=== PATIENT | male | born 1955 | race Caucasian/White ===

== ENCOUNTER 2019-08-10 02:41 | Inpatient (IN) | payer SELFPAY ==
[2019-08-10] VITALS (14 sets, daily range): BP systolic 116–179; BP diastolic 73–113; PULSE 60–79; RESP 16–20; TEMP 36.5–36.9; O2SAT 92–98; BMI 23.7
--- NOTE | 2019-08-10 03:01 | XRR_ITS ---
PROCEDURE INFORMATION: Exam: XR Chest, 1 View Exam date and time: 08/10/2019 3:12 AM Age: 64 years old Clinical indication: Shortness of breath; Additional info: CVA TECHNIQUE: Imaging protocol: XR of the chest Views: 1 view. COMPARISON: No relevant prior studies available. FINDINGS: Lungs: Unremarkable. No consolidation. Pleural space: Unremarkable. No pleural effusion. No pneumothorax. Heart/Mediastinum: Unremarkable. No cardiomegaly. Bones/joints: Unremarkable. XR/XR chest 1V portable [id number] IMPRESSION: No acute findings.
--- NOTE | 2019-08-10 03:01 | ECG_ITS ---
Measurements Intervals [place] Rate: 64 P: 89 UT: 176 QRS: 85 QRSD: 86 T: 93 QT: 383 QTc: 398 SINUS RHYTHM NONSPECIFIC T-WAVE ABNORMALITY No previous ECG available for comparison Electronically Signed On 08-10-2019 18:19:43 CDT by Reza Florez M.D. [email or web address]
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
[2019-08-10 03:27] LABS: Basophils # 0.1 10^3/uL (0.0-0.1); Basophils % 0.8 %; Eosinophils # 0.2 10^3/uL (0.0-0.8); Eosinophils % 3.3 %; Hematocrit 35.4 % (42.0-52.0); Hemoglobin 11.7 g/dL (11.7-16.6); Lymphocytes # 1.6 10^3/uL (0.8-4.8); Lymphocytes % 25.8 %; Mean Corpuscular HGB Conc 33.1 g/dL (30.0-36.0); Mean Corpuscular Hemoglobin 32.4 pg (28.0-34.0); Mean Corpuscular Volume 98.1 fL (80-94); Mean Platelet Volume 9.2 fL (7.4-10.4); Monocytes # 0.6 10^3/uL (0.2-0.9); Monocytes % 9.2 %; Neutrophils # 3.8 10^3/uL (1.8-7.7); Neutrophils % 60.4 %; Nucleated Red Blood Cells % 0 %; Platelet Count 199 10^3/cmm (130-400); Red Blood Count 3.61 10^6/uL (4.1-5.3); Red Cell Distribution Width 13.5 % (12.1-15.1); White Blood Count 6.3 10^3/uL (4.0-10.0)
[2019-08-10 03:40] LABS: INR 0.92 (0.8-1.2)
[2019-08-10 03:50] LABS: Albumin Level 4.2 g/dL (3.5-5.2); Alkaline Phosphatase 62 IU/L (40-130); Anion Gap 15.2 (5-19); Blood Urea Nitrogen 20 mg/dL (8-23); Calcium 8.8 mg/dL (8.5-10.5); Carbon Dioxide 28 mmol/L (22-29); Chloride 99 mmol/L (98-107); Globulin 2.9 g/dL (1.3-4.6); Glomerular Filtration Rate 38.4 mL/min (90-130); Glucose 100 mg/dL (65-115); Osmolality Calculated 283 mOsm/kg (285-295); Potassium 4.2 mmol/L (3.5-5.1); Sodium 138 mmol/L (136-145); Total Bilirubin 0.2 mg/dL (0.15-1.2); Total Protein 7.1 g/dL (6.6-8.7)
[2019-08-10 04:01] LABS: Alanine Aminotransferase < 5 U/L (0-41); Aspartate Amino Transferase 5 U/L (0-40)
[2019-08-10 04:12] LABS: Troponin(5th) Baseline 54 ng/L (0-15)
--- NOTE | 2019-08-10 04:27 | PM.HP ---
Providers/Chief Complaint Chief Complaint: stroke like symptoms History of Present Illness Tk Portillo is a 64 year old male who does not see any doctor, does not take any medications, was told about hypertension 5 years ago, has history of lacunar infarct came in for chief complaint of left-sided weakness. Patient is stating that he lives in a camper, he tries to avoid seeing a doctor to save his money, last week on Monday he used IV methamphetamine and on Monday he started experiencing left-sided weakness, started with his left leg, he was not able to lift his left leg to get into his camper, he also noticed loosening of his left hand medical office asst, his speech was more slurred, he was trying to avoid coming to the hospital but his family and especially daughter forced him to come to the ER for further evaluation. He is denying chest pain, shortness of breath, blurry vision. He is endorsing nocturia, urinary frequency. Patient is stating that he does not eat healthy, he eats from gas stations, he does not cook at his camper, smokes 4 to 5 cigarettes a day, no recent alcohol use, he does marijuana sometimes and recently did IV methamphetamine. Diagnostics in the ER revealed normal sinus rhythm, systolic blood pressure ranging between 180/110mmhg, no ischemic or infarctive changes on EKG, left atrial enlargement, Diagnostic work-up is unremarkable Patient wanted to leave from the ER for concerns of pain for his stay in the hospital and agreed to stay once I explained him the complications of hypertensive encephalopathy and hemorrhagic stroke Review of Systems Const: Reports: fatigue; Denies: fever(s), chills or body aches Eyes: Denies: change in vision ENMT: Denies: throat pain Card: Denies: chest pain Resp: Denies: dyspnea GI: Denies: abdominal pain or nausea : Reports: urinary frequency and nocturia; Denies: flank pain Musc: Denies: neck pain Skin/Breast: Denies: rash Neuro: Reports: weakness in extremities and Slurred speech present; Denies: frequent falls or behavioral changes Psych: Denies: anxiety Endo: Denies: polyuria Parminder/Lymph: Denies: easy bruising All/Imm: Denies: urticaria PFSH Acute PFSH: Medical History (Updated 08/10/19 @ 05:18 by Reza Watkins MD) Hypertension Lacunar infarction Surgical History (Updated 08/10/19 @ 05:11 by Reza Watkins MD) No pertinent past surgical history Family History (Updated 08/10/19 @ 05:11 by Reza Watkins MD) Daughter Stroke Social History (Updated 08/10/19 @ 05:12 by Reza Watkins MD) Smoking and tobacco status: heavy tobacco smoker cigarettes Number of cigarettes per day: 1-5 Alcohol intake: never Substance/Drug Use: current Substance/Drug use type: Methamphetamine Lives independently: Yes Housing: Other Details: Lives in a camper Vitals/I&O/Wt Last Vital Signs Temp 97.8 F 08/10/19 03:00 Pulse 64 08/10/19 03:46 Resp 16 08/10/19 03:46 BP 163/105 08/10/19 03:46 Pulse Ox 95 08/10/19 03:46 Weight last 48 hrs Weight 77.111 kg Physical Exam Narrative: EXAM NARRATIVE: Head to toe examination Patient is lying comfortably in his bed without any active discomfort He is hypertensive, EKG showing normal sinus rhythm NIH 1 for slight slurring of speech Good strength of upper and lower extremities 3/5 on flexion and extension Absent sensations around toes laterally Unkempt Reflexes equivocal No cerebellar sign Awake alert oriented x3 GCS 15 No facial asymmetry Pupils equal and reactive S1, S2 No signs of heart failure Abdomen soft nontender nondistended Lungs are clear to auscultation Poor hygiene Data : 08/10/19 03:10 08/10/19 03:10 A&P Assessment and plan (1) TIA (transient ischemic attack): Status: Acute (2) Left arm weakness: Status: Acute (3) Dysarthria: Status: Acute (4) Acute kidney injury: Status: Acute Additional A&P Information TIA NIH 1 History of hypertension, has not seen a doctor in a long time, history of avoiding to see a doctor to avoid pain co-pays I have started him on aspirin, Plavix and high-dose statins Allow permissive hypertension for next 24 hours Drug screen, check TSH CT head negative for acute pathology Physical therapy in the morning I will let him eat, do not think we need speech evaluation at this time ELLIOT due to hypotension and methamphetamine abuse I do not have his baseline creatinine Check drug screen Patient is stating that he has been experiencing nocturia, his urine stream is very weak We will get renal ultrasound to rule out hydronephrosis Patient is stating that he will try his best to avoid seeing a doctor in order to save his money, he was told about his hypertension 5 years ago and he did not seek any medical attention, his son is at the bedside I counseled both patient and his son for about 10 minutes and they agreed to see a doctor and use recommended medications on discharge Full code DVT prophylaxis Heparin Cardiac diet Attestations Medical Necessity Statement*: Anticipating discharge in less than 48 hours continue investigation for TIA Time Spent in Patient Care: 50 Coding Level of Care Code Acute Telecommunication Equipment Repairer for Chg Fwd Diagnoses TIA (transient ischemic attack) G45.9 Left arm weakness R29.898 Dysarthria R47.1 Acute kidney injury N17.9
[2019-08-10] MEDS: aspirin 81 mg Chew Tablet 324 MG PO (04:30)
--- NOTE | 2019-08-10 05:01 | ECG_ITS ---
Measurements Intervals [place] Rate: 61 P: 82 FL: 188 QRS: 81 QRSD: 78 T: 94 QT: 405 QTc: 410 SINUS RHYTHM SEPTAL MYOCARDIAL INFARCTION , PROBABLY OLD [40+ ms Q WAVE IN V1/V2] No previous ECG available for comparison Electronically Signed On 08-10-2019 18:20:25 CDT by Reza Florez M.D. [id number]
--- NOTE | 2019-08-10 05:44 | USR_ITS ---
PROCEDURE INFORMATION: Exam: US Retroperitoneal Complete, Kidneys and Bladder. Exam date and time: 08/10/2019 7:10 AM Age: 64 years old Clinical indication: Abnormal findings; Abnormal lab test; Abnormal kidney function lab tests; Additional info: Ronny TECHNIQUE: Imaging protocol: Real-time ultrasound of the retroperitoneum with image documentation. Complete exam focused on the kidneys and bladder. COMPARISON: No relevant prior studies available. FINDINGS: Right kidney: Septated cyst in the right kidney measuring 1.9 x 1.5 x 1.9 cm. Simple appearing cyst in the medial lower pole measuring 1.8 x 1.6 x 1.7 cm. No stones. No hydronephrosis. Left kidney: 5.5 x 5.6 x 5.3 cm cyst in the upper pole of the left kidney. No stones. No hydronephrosis. Bladder: Unremarkable. Aorta: The distal aorta was not visualized. US/US renal BI* [id number] IMPRESSION: No acute findings.
--- NOTE | 2019-08-10 05:44 | USCV_ITS ---
Tk Portillo Age: 64 Gender: M : 1955 Exam Date: 08/10/2019 06:56 Ordering Phys: Reza Watkins MD Technologist: Ophelia Servin Exam Location: [facility] [place] Indication: Concern for embolic stroke BP: 176 / 108 HR: 61 Rhythm: Sinus Technical Quality: Suboptimal MEASUREMENTS (Male / Female) Normal Values 2D ECHO LV Diastolic Diameter PLAX 3.5 cm 4.2 - 5.9 / 3.9 - 5.3 cm LV Systolic Diameter PLAX 2.2 cm LV Chamber Size 3.0 cm IVS Diastolic Thickness 1.1 cm 0.6 - 1.0 / 0.6 - 0.9 cm IVS Systolic Thickness 1.7 cm LVPW Diastolic Thickness 1.4 cm 0.6 - 1.0 / 0.6 - 0.9 cm LVPW Systolic Thickness 2.0 cm RV Chamber Size 1.6 cm LVOT Diameter 1.8 cm LV Ejection Fraction 2D Teich 69.4 % LA Diameter 2.4 cm LA Width 2.1 cm LA Height 2.9 cm RA Width 1.2 cm RA Height 3.8 cm Aorta at Sinotubular Diameter 2.0 cm M-MODE LV Diastolic Diameter MM 4.3 cm 4.2 - 5.9 / 3.9 - 5.3 cm LV Systolic Diameter MM 2.6 cm LV Ejection Fraction MM Teich 70.0 % IVS Diastolic Thickness MM 1.3 cm 0.6 - 1.0 / 0.6 - 0.9 cm IVS Systolic Thickness MM 2.1 cm LVPW Diastolic Thickness MM 1.6 cm 0.6 - 1.0 / 0.6 - 0.9 cm LVPW Systolic Thickness MM 2.1 cm RV Diastolic Diameter MM 1.1 cm Aortic Annulus Diameter 3.0 cm LA Ao Ratio MM 0.8 MV E Point Septal Separation 0.6 cm DOPPLER AV Peak Velocity 83.0 cm/s LVOT Peak Velocity 56.0 cm/s AV Area Cont Eq vti 1.9 cm squared AV Area Cont Eq pk 1.8 cm squared MV Area PHT 3.0 cm squared Mitral E to A Ratio 0.8 MV E' Velocity 6.0 cm/s Mitral E to MV E' Ratio 8.1 Mitral E to LV E' Lateral Ratio 8.3 Mitral E to LV E' Septal Ratio 8.0 TV Peak E Velocity 61.0 cm/s Right Atrial Pressure 3.0 mmHg PV Peak Velocity 57.0 cm/s RV Acceleration Time 0.1 s RV Ejection Time 0.2 s RV AcT/ET 0.5 FINDINGS Left Ventricle Normal left ventricular cavity size. Normal left ventricular systolic function. No regional wall motion abnormalities. Left ventricular ejection fraction is estimated at 60 %. Grade I/IV diastolic dysfunction (abnormal relaxation filling pattern), normal to mildly elevated filling pressures. Right Ventricle The right ventricle is normal in size and function. RVSP could not be calculated due to incomplete tricuspid regurgitation velocity profile. Right Atrium The right atrium is normal in size. Left Atrium The left atrium is normal in size. Mitral Valve Structurally normal mitral valve without significant stenosis or prolapse. There is no mitral regurgitation. Aortic Valve Moderate aortic valve calcification. Mild aortic valve stenosis, mean gradient 1.5 mmHg, SHAI 1.9 cm squared. No aortic valve regurgitation. Tricuspid Valve Structurally normal tricuspid valve without significant stenosis or regurgitation. Pulmonic Valve Structurally normal pulmonic valve without significant stenosis. There is no pulmonic regurgitation. Pericardium Normal pericardium without effusion. Aorta Normal ascending aorta dimension. CONCLUSIONS 1-Normal left ventricular cavity size. Normal left ventricular systolic function. No regional wall motion abnormalities. Left ventricular ejection fraction is estimated at 60 %. Grade I/IV diastolic dysfunction (abnormal relaxation filling pattern), normal to mildly elevated filling pressures. 2-Moderate aortic valve calcification. Mild aortic valve stenosis, mean gradient 1.5 mmHg, SHAI 1.9 cm squared. No aortic valve regurgitation. 3-The right ventricle is normal in size and function. RVSP could not be calculated due to incomplete tricuspid regurgitation velocity profile. 4-There is no pericardial effusion. 5-Right atrial pressure is around 5 mm of mercury. 6-There are no prior echocardiogram studies to compare. Reza Florez MD (Electronically Signed) Final Date: 10 August 2019 17:19 S
--- NOTE | 2019-08-10 05:44 | USR_ITS ---
Arterial ultrasound of the extracerebral carotid and vertebral arteries Clinical indication: Left arm weakness Technique: Real-time ultrasound with diaz scale, duplex Doppler, and color flow imaging was performed to evaluate the extracerebral carotid and vertebral arteries. No prior vascular imaging studies are available for correlation at the time of dictation. Findings: Prominent mixed echogenic plaque formation is identified in the carotid arteries along with intimal thickening . There is normal antegrade flow within the vertebral arteries bilaterally. The peak systolic velocity measurements within the right and left internal carotid arteries are 88 and 89 cm per second respectively. The right systolic velocity ratio is 1.66, while the left systolic velocity ratio is 1.48. These values are well within normal limits. When correlating with NASCET index criteria, no hemodynamically significant ICA stenosis is present. US/CV carotid duplex BI* [id number] Impression: 1. Prominent mixed echogenic plaque formation within the carotid arteries, without hemodynamically significant ICA stensosis. 2. Normal antegradew flow within the vertebral arteries.
[2019-08-10] MEDS: heparin 5,000 unit/mL INJ 1 mL 5000 UNIT SUBCUT ×3 (06:16→20:59)
[2019-08-10] MEDS: atorvastatin 40 mg Tablet 80 MG PO ×2 (06:16→20:58)
[2019-08-10] MEDS: clopidogrel 75 mg Tablet PO (06:16)
[2019-08-10 06:36] LABS: Thyroid Stimulating Hormone 86.83 uIU/mL (0.27-4.20)
--- NOTE | 2019-08-10 06:44 | PC.NURSE ---
US at bedside
--- NOTE | 2019-08-10 07:57 | PC.NURSE ---
physician ordered for pt to have a U/A.
[2019-08-10 08:03] LABS: Estmated Average Glucose 114; Hemoglobin A1C 5.6 % (4.0-6.0)
[2019-08-10 08:04] LABS: Chol HDL Ratio 9.68 mg/dL (1.0-5.00); Cholesterol 271 mg/dL (0-200); HDL Cholesterol 28 mg/dL (60-100); Triglycerides 662 mg/dL (0-150); VLDL Cholestrol Calculation 132 mg/dL (0-30)
[2019-08-10 08:15] LABS: T3 Free 0.4 PG/ML (2.0-4.4)
[2019-08-10 08:51] LABS: LDL Cholesterol Direct 167 mg/dL (0-100)
--- NOTE | 2019-08-10 09:01 | ECG_ITS ---
Measurements Intervals [place] Rate: 64 P: 73 IL: 179 QRS: 74 QRSD: 89 T: 90 QT: 371 QTc: 385 SINUS RHYTHM LOW QRS VOLTAGE IN PRECORDIAL LEADS [QRS DEFLECTION < 1.0 mV IN CHEST LEADS] NONSPECIFIC T-WAVE ABNORMALITY No previous ECG available for comparison Electronically Signed On 08-10-2019 18:20:28 CDT by Reza Florez M.D. [email or web address]
[2019-08-10 09:03] LABS: Add Urine Microscopic? NO
[2019-08-10 09:25] LABS: Troponin 5 6HR 64.35 ng/L (0-15); Troponin 5 6HR Delta 10.35 ng/L (0-12)
[2019-08-10 09:35] LABS: Bilirubin Urine Neg (NEGATIVE); Blood Urine Neg (Negative); Glucose Urine UA Norm (Normal); Ketones Urine Negative (Negative); Leukocyte Esterase Urine Negative (Negative); Nitrate Urine Negative (Negative); Protein Urine Neg (Negative); Urine Appearance Clear (CLEAR); Urine Color Yellow (Yellow); Urobilinogen Urine Norm (Negative); pH Urine 5 (5-7)
[2019-08-10 09:44] LABS: Amphetamines Screen Urine Negative (Negative); Barbiturates Screen Urine Negative (Negative); Benzodiazepines Screen Urine Negative (Negative); Cocaine Screen Urine Negative (Negative); Opiate Screen Urine Negative (Negative); PCP Screen Urine Negative (Negative); THC Screen Urine Positive (Negative)
[2019-08-10 09:49] LABS: Potassium, Radom Urine 31 mmol/L; Urine Creatinine 156 mg/dL (39-259); Urine Random Chloride 156 mmol/L; Urine Random Sodium 163 mmol/L
[2019-08-10] MEDS: sodium chloride 0.9% 1,000 ML 75 ML IV ×2 (09:52→20:59)
--- NOTE | 2019-08-10 10:27 | P.PN_ITS ---
Subjective Subjective: Interval history: Admitted overnight. H&P and labs noted. Evaluation patient is lying comfortably in bed, having weakness in his left arm and legs. He denies of having any chest pain, nausea, vomiting, headache, dizziness, any new weakness. Telemetry stable. Vitals/I&O/Wt Last Vital Signs Temp 97.7 F 08/10/19 09:00 Pulse 60 08/10/19 09:00 Resp 18 08/10/19 09:00 BP 150/89 08/10/19 09:00 Pulse Ox 93 08/10/19 07:36 08/09/19 08/10/19 08/10/19 22:59 06:59 14:59 Intake Total 240 / 240 Output Total 150 / 150 Balance 90 / 90 Weight last 48 hrs Weight 77.111 kg Physical Exam Narrative: EXAM NARRATIVE: General: No acute distress, AO x3 HEENT: PERRLA, pupils bilaterally equal and reactive Chest: Normal vesicular breath sounds, no added sounds, equal good air entry bilaterally CVS: S1-S2 regular, no murmurs, no tachycardia, no gallops, no rubs Abdomen: Soft, nontender, no organomegaly, bowel sounds present Neuro: No facial deformity, pupils bilaterally equal and reactive, AO x3, power left upper limb and lower limb 3/5, right upper limb and lower limb 5/5 Data : 08/10/19 03:10 08/10/19 03:10 Micro: Microbiology 08/10/19 08:50 Blood Culture - Preliminary Blood SPECIMEN COLLECTED 08/10/19 08:59 Blood Culture - Preliminary Blood SPECIMEN COLLECTED A&P Assessment and plan (1) TIA (transient ischemic attack): Status: Acute (2) Left arm weakness: Status: Acute (3) Dysarthria: Status: Acute (4) Acute kidney injury: Status: Acute (5) Hypertension: Status: Acute (6) Hypothyroidism: Status: Acute (7) Dyslipidemia: Status: Acute Additional A&P Information TIA: History of hypertension, noncompliance with doctors, smoking, possible stroke in the past. Continue with aspirin. Start patient on atorvastatin 80 mg daily. Check lipid panel, HbA1c. Urine drug screen and TSH appreciated. Continue PT/OT evaluation and treat. Results of carotid Doppler, echocardiogram awaited. Hypertension: Blood pressure acceptable for now. We will start patient on amlodipine 5 mg daily from tomorrow. ELLIOT: Most likely because of chronic hypotension. Check urine lites, urine creatinine. Renal ultrasound appreciated. Start patient on IV fluids with normal saline at 50 cc/h. Continue monitoring BMP daily. Hypothyroidism: TSH more than 80. Check free T3, free T4. Start patient on levothyroxine oral 125 mcg daily first dose today. Discussed in detail with patient that he has significant risk factors for cardiovascular disorders. Discussed him in detail that going forward he needs to follow-up with a primary care provider at least once in 6 to 8 months to take care of his general health. Discussed with him detail that now he is on new medications for hypertension, stroke, hypothyroidism which he would need to take for life. Also discussed with him regarding [facility] pharmacies and primary care providers. Full code DVT prophylaxis Heparin Cardiac diet Due to multiple comorbidities along with ongoing ELLIOT, hypothyroidism we will change patient status to inpatient. Attestations Medical Necessity Statement*: ELLIOT, TIA, hypothyroidism Time Spent in Patient Care: Greater than 35 minutes (>than 50% of time spent in counselling and/or direct pt care on unit) . Coding Level of Care Code Acute Suggestion Clerk for Chg Fwd Diagnoses TIA (transient ischemic attack) G45.9 Left arm weakness R29.898 Dysarthria R47.1 Acute kidney injury N17.9 Hypertension I10 Hypothyroidism E03.9 Dyslipidemia E78.5
[2019-08-10] MEDS: levothyroxine 125 mcg Tablet PO (11:04)
[2019-08-10 11:33] LABS: Eosinophil Urine No Eosinophils Seen; Urine Eosinophil Count 0 (0-0)
--- NOTE | 2019-08-10 14:13 | PC.CHAP ---
Pastoral Care Encounter/Spiritual Assessment Type of Contact [] Declined powder coat painter visit [] Patient/Family/Request visit [] Outpatient visit [] Follow-up visit [] Physician referral [] Code/Alert [X] Routine visit [] Staff referral [] Actively dying [] Patient sleeping [] Family support [] [] Out of room [] Palliative care [] [] Receiving care in room [] Pre-surgical visit [] Trauma [] Long length of stay [] ICU visit [] Other: Relational/Emotional Strength [] Patient feels connected with others/family/visitors/staff [] Distress [] Loneliness/isolation [] Abandonment Spirituality of Patient [] Person of Florencia [] Attends Spiritism of their Florencia [] Believes in Prayer [] Reads Bible or Sabianist materials [] There are Spiritual issues to be addressed Resaw Tailer Interventions [] Prayer [] Active listening [] Non-anxious presence [] Spiritual/emotional support [] Crisis/trauma care [] Spiritual counseling [] Bereavement support [] Provided bereavement packet [] Provided Bible/devotional materials [] Provided toy/stuffed animal, coloring book to patient or family member [] Provided Communion [] Anointing/Blanding [] Salvation [] Completed spiritual assessment [] Other: Impact on Illness or Injury [] Angry [] Fearful [] Anxious [] Often cries [] Exhaustion [] Unable to work [] Unable to attend faith [] Unable to walk/stand [] Unable to read [] Unable to drive [] Unable to eat/drink [] Unable to sleep [] Unable to be with family [] Patient intubated [] Other: Summary Time spent with patient
[2019-08-11 03:00] VITALS: BP 131/76; PULSE 61; RESP 18; TEMP 36.6; O2SAT 94
[2019-08-11 06:10] LABS: Basophils # 0.1 10^3/uL (0.0-0.1); Basophils % 1.2 %; Eosinophils # 0.2 10^3/uL (0.0-0.8); Eosinophils % 3.6 %; Hematocrit 35.8 % (42.0-52.0); Hemoglobin 11.5 g/dL (11.7-16.6); Lymphocytes # 1.3 10^3/uL (0.8-4.8); Lymphocytes % 26.1 %; Mean Corpuscular HGB Conc 32.1 g/dL (30.0-36.0); Mean Corpuscular Hemoglobin 31.3 pg (28.0-34.0); Mean Corpuscular Volume 97.5 fL (80-94); Monocytes # 0.4 10^3/uL (0.2-0.9); Monocytes % 8.3 %; Nucleated Red Blood Cells % 0 %; Platelet Count 162 10^3/cmm (130-400); Red Blood Count 3.67 10^6/uL (4.1-5.3); Red Cell Distribution Width 13.6 % (12.1-15.1); White Blood Count 5.1 10^3/uL (4.0-10.0)
[2019-08-11 06:26] LABS: Alanine Aminotransferase 14 U/L (0-41); Albumin Level 4.1 g/dL (3.5-5.2); Alkaline Phosphatase 55 IU/L (40-130); Aspartate Amino Transferase 27 U/L (0-40); Blood Urea Nitrogen 18 mg/dL (8-23); Calcium 8.7 mg/dL (8.5-10.5); Carbon Dioxide 28 mmol/L (22-29); Chloride 101 mmol/L (98-107); Globulin 3.2 g/dL (1.3-4.6); Glomerular Filtration Rate 47.4 mL/min (90-130); Glucose 85 mg/dL (65-115); Osmolality Calculated 280 mOsm/kg (285-295); Sodium 137 mmol/L (136-145); Total Bilirubin 0.2 mg/dL (0.15-1.2); Total Protein 7.3 g/dL (6.6-8.7)
[2019-08-11 06:52] LABS: Free T4 Free Thyroxine 0.13 ng/dL (0.82-1.77); Thyroid Stimulating Hormone 90.56 uIU/mL (0.27-4.20)
[2019-08-11 07:00] VITALS: BP 148/90; PULSE 62; RESP 18; TEMP 36.8; O2SAT 95
[2019-08-11] MEDS: levothyroxine 125 mcg Tablet PO (08:40)
[2019-08-11] MEDS: amlodipine 5 mg Tablet PO (08:41)
[2019-08-11] MEDS: aspirin 81 mg EC Tablet PO (08:41)
--- NOTE | 2019-08-11 10:00 | PM.DCS ---
Discharge Providers Date of Admission: 08/10/19 10:15 Date of Discharge: August 11, 2019 Attending Provider at Admission: Reza Watkins MD Attending Provider at Discharge: Gilbert Guerra MD Diagnoses at Discharge Discharge Diagnosis (1) TIA (transient ischemic attack): Status: Acute (2) Left arm weakness: Status: Acute (3) Dysarthria: Status: Acute (4) Acute kidney injury: Status: Acute (5) Hypertension: Status: Acute (6) Hypothyroidism: Status: Acute (7) Dyslipidemia: Status: Acute Reason for Visit Reason for Visit: stroke like symptoms Hospital Course Discharge Summary: Tk Portillo is a 64 year old male who does not see any doctor, does not take any medications, was told about hypertension 5 years ago, has history of lacunar infarct came in for chief complaint of left-sided weakness. 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 He is denying chest pain, shortness of breath, blurry vision. He is endorsing nocturia, urinary frequency. Patient is stating that he does not eat healthy, he eats from gas stations, he does not cook at his camper, smokes 4 to 5 cigarettes a day, no recent alcohol use, he does marijuana sometimes and recently did IV methamphetamine. Diagnostics in the ER revealed normal sinus rhythm, systolic blood pressure ranging between 180/110mmhg, no ischemic or infarctive changes on EKG, left atrial enlargement, Diagnostic work-up is unremarkable. Patient was admitted to the floor for further work-up for TIA. His blood work done showed markedly abnormal thyroid panel, abnormal lipid panel with creatinine of 1.8(no baseline creatinine system), ASCVD score over 20, renal ultrasound showed no acute findings, echocardiogram was done which showed an EF of 60% with grade 1 diastolic dysfunction with left ventricular hypertrophy mild aortic stenosis, carotid Doppler showed prominent mixed echogenic plaque formation within the carotid arteries without hemodynamically significant stenosis. He was started on aspirin, statins, amlodipine for blood pressure and levothyroxine 125 mcg daily. He worked well with physical and Occupational Therapy. Patient was explained in detail regarding need for regular follow-up with a primary care provider and need to take his medications regularly to prevent further cardiovascular dysfunction and even . Patient agreed to follow-up and verbalized understanding. [facility] and [facility] to him with meds to bed facility. He is to follow-up with his primary care provider in 2 months with a CMP and thyroid panel. He has been discharged in hemodynamically stable condition. Physical Exam Narrative: EXAM NARRATIVE: General: No acute distress, AO x3 HEENT: PERRLA, pupils bilaterally equal and reactive Chest: Normal vesicular breath sounds, no added sounds, equal good air entry bilaterally CVS: S1-S2 regular, no murmurs, no tachycardia, no gallops, no rubs Abdomen: Soft, nontender, no organomegaly, bowel sounds present Neuro: No facial deformity, pupils bilaterally equal and reactive, AO x3, power left upper limb and lower limb 3/5, right upper limb and lower limb 5/5 Discharge Data Data Completed and Pending: Completed Studies During Hospitalization Category Date Time Status CT head wo con* [id number] Urgent Cat Scan 08/10/19 03:01 Completed XR chest 1V leonor ble [id number] Urgent Exams 08/10/19 03:01 Completed CV carotid duplex BI* [id number] Routine Ultrasound 08/10/19 05:44 Completed CV echo complete* [id number] Routine Ultrasound 08/10/19 05:44 Completed US renal BI* [id number] Routine Ultrasound 08/10/19 05:44 Completed Pending at discharge Category Date Time Status Blood Culture Sta t Lab 08/10/19 08:50 Results Labs from last 24 hours 08/11/19 08/11/19 08/11/19 06:07 06:07 06:07 WBC 5.1 RBC 3.67 L Hgb 11.5 L Hct 35.8 L MCV 97.5 H MCH 31.3 MCHC 32.1 RDW 13.6 Plt Count 162 MPV 9.0 Neut % (Auto) 60.0 Lymph % (Auto) 26.1 [place] % (Auto) 8.3 Eos % (Auto) 3.6 Baso % (Auto) 1.2 Neut # (Auto) 3.0 Lymph # (Auto) 1.3 [place] # (Auto) 0.4 Eos # (Auto) 0.2 Baso # (Auto) 0.1 Nucleated RBC % (a uto) 0 Nucleated RBCs # 0.0 Sodium 137 Potassium 4.0 Chloride 101 Carbon Dioxide 28 Anion Gap 12.0 BUN 18 Creatinine 1.5 H GFR Calculation 47.4 L Glucose 85 Calculated Osmolal ity 280 L Calcium 8.7 Total Bilirubin 0.2 AST 27 ALT 14 Alkaline Phosphata se 55 Troponin I Hi Sens Del Total Protein 7.3 Albumin 4.1 Globulin 3.2 TSH 90.56 H Free T4 0.13 L Ur Eosinophil Smea r Urine Eosinophils 08/10/19 08/10/19 08:59 08:45 WBC RBC Hgb Hct MCV MCH MCHC RDW Plt Count MPV Neut % (Auto) Lymph % (Auto) [place] % (Auto) Eos % (Auto) Baso % (Auto) Neut # (Auto) Lymph # (Auto) [place] # (Auto) Eos # (Auto) Baso # (Auto) Nucleated RBC % (a uto) Nucleated RBCs # Sodium Potassium Chloride Carbon Dioxide Anion Gap BUN Creatinine GFR Calculation Glucose Calculated Osmolal ity Calcium Total Bilirubin AST ALT Alkaline Phosphata se Troponin I Hi Sens Del 10.35 Total Protein Albumin Globulin TSH Free T4 Ur Eosinophil Smea r 0 Urine Eosinophils No eosinophils se en Vitals: Last Vital Signs Temp 98.3 F 08/11/19 07:00 Pulse 62 08/11/19 07:00 Resp 18 08/11/19 07:00 BP 148/90 08/11/19 07:00 Pulse Ox 95 08/11/19 07:00 Discharge Plan Discharge Patient Disposition: Home, Self-Care Condition: Stable Prescriptions: New atorvastatin 40 mg Tablet 80 mg PO BEDTIME Qty: 30 RF: 0 amlodipine 5 mg Tablet 5 mg PO DAILY Qty: 30 RF: 0 aspirin 81 mg Tablet,Delayed Release (Dr/Ec) 81 mg PO DAILY Qty: 30 RF: 0 levothyroxine 125 mcg Tablet 125 mcg PO DAILY Qty: 30 RF: 0 Discharge Orders: Discharge Order (Routine); Ordered 08/11/19 Ordered By: Gilbert Guerra Referrals: [facility] ([facility]) [Other] - 2 months (Please call and schedule to see a physician as a new patient. Ask for a [facility] doctor. Also ask about the slide scale. ) Discharge Diet: Cardiac Discharge Activity: Resume usual activity Activity Restrictions/Additional Instructions: Please follow-up with primary care provider within next 2 months. Before following up please get CMP and thyroid panel checked. Please make sure that you continue taking medications as prescribed. Discharge Attestations Time Spent in Discharge Care*: greater than 30 min Specific Discharge Activities: Specific discharge activities: educating patient, educating and/or supporting family/caregiver, discussing with leather case finisher/social workers/dc planners, documenting/other paperwork and evaluating patient/reviewing data Status at Discharge: Cognitive status at discharge: cognitively intact, Behavioral status at discharge: cooperative, Functional status at discharge: independent ambulation Overall status at discharge: patient is back to baseline Quality Metrics Clinical Quality Measures During this hospital stay, did patient experience: Stroke Contraindication to Antithrombotic: Antithrombotic prescribed Contraindication to Anticoagulation: Overlap treatment not indicated Contraindication to Statin: Statin prescribed and None Coding Level of Care Code Acute Trimmer Operator for Genevieve Fwd Diagnoses TIA (transient ischemic attack) G45.9 Left arm weakness R29.898 Dysarthria R47.1 Acute kidney injury N17.9 Hypertension I10 Hypothyroidism E03.9 Dyslipidemia E78.5
[2019-08-11 10:09] VITALS: BP 148/90; PULSE 62; RESP 18; TEMP 36.8; O2SAT 95
--- NOTE | 2019-08-12 15:16 | PC.RESP ---
Smoking Cessation information and a schedule of classes sent to patient.
== END 2019-08-11 12:25 | disposition home or self-care (01) | DRG 69 ==
LOC: ER 04:35 → MEDSURG 04:46
PROVIDERS: Admitting Provider Internal Medicine; Emergency Provider Emergency Medicine; Visit Provider Student in an Organized Health Care Education/Training Program
DX: G45.9 Transient cerebral ischemic attack, unspecified (principal); N17.9 Acute kidney failure, unspecified; R47.1 Dysarthria and anarthria; E03.9 Hypothyroidism, unspecified; E78.5 Hyperlipidemia, unspecified; I10 Essential (primary) hypertension; R53.1 Weakness; F17.210 Nicotine dependence, cigarettes, uncomplicated; F12.90 Cannabis use, unspecified, uncomplicated; R29.701 NIHSS score 1; F15.10 Other stimulant abuse, uncomplicated; I95.9 Hypotension, unspecified
CPT/HCPCS: 12345; 36415; 70450; 71045; 76770; 80053; 80061; 80306; 81003; 82436; 82570; 83036; 83721; 84133; 84300; 84439; 84443; 84481; 84484; 85025; 85610; 85999; 87040; 93005; 93306; 93880; 96372; 97162; 99283; G0378; J1644; J7030